=== PATIENT | female | born 1960 | race African-American/Black ===

== ENCOUNTER 2018-09-07 20:40 | Emergency (ER) | payer SELFPAY ==
[2018-09-07] MEDS ORDERED: Ibuprofen 200 MG TAB ONE (20:59)
== END 2018-09-07 21:15 | disposition home or self-care (01) ==
LOC: NAV ERS 20:40
DX: S43.401A Unspecified sprain of right shoulder joint, initial encounter (principal); W19.XXXA Unspecified fall, initial encounter
CPT/HCPCS: 99283

== ENCOUNTER 2020-04-26 14:19 | Emergency (ER) | payer OTHER, SELFPAY ==
[2020-04-26] MEDS ORDERED: Acetaminophen 500 MG TAB ONE (14:49)
[2020-04-26] MEDS ORDERED: Ondansetron ODT 4 MG TAB ONE (14:49)
[2020-05-01 14:25] LABS: SARS-CoV-2 MS2 Positive; SARS-CoV-2 N Gene Negative; SARS-CoV-2 S Gene Negative; SARS-CoV-2 orf1ab Negative
== END 2020-04-26 15:00 | disposition home or self-care (01) ==
LOC: NAV ERS 14:19
DX: R50.9 Fever, unspecified (principal); M79.10 Myalgia, unspecified site; R11.0 Nausea; R09.81 Nasal congestion; R05 Cough; Z20.828 Contact with and (suspected) exposure to other viral communicable diseases
CPT/HCPCS: 87635; 99283; Q0162; U0003

== ENCOUNTER 2020-11-08 16:28 | Emergency (ER) | payer BC, SELFPAY ==
[2020-11-08 17:02] LABS: #Eosinphils 0.2 thou/uL (0.0-0.7); #Lymphocytes 1.9 thou/uL (1.20-3.40); #Monocytes 0.4 thou/uL (0.11-0.59); #Neutrophils 1.4 thou/uL (1.40-6.50); %Basophils 0.3 % (0.0-1.0); %Lymphocytes 49.5 % (21.0-51.0); %Monocytes 9.6 % (0.0-10.0); %Neutrophils 36.5 % (42.0-75.0); Hemoglobin 11.7 g/dL (12.0-16.0); Mean Corpuscular HGB CONC 31.7 g/dL (32.0-36.0); Mean Corpuscular Hemoglobin 27.5 pg (27.0-31.0); Mean Corpuscular Volume 86.8 fL (78.0-98.0); Mean Platelet Volume 7.1 fL (7.4-10.4); Platelet Count 286 thou/uL (130-400); RBC Distribution Width 12.4 % (11.5-14.5); Red Blood Cell (RBC) Count 4.24 mill/uL (4.20-5.40); White Blood Cell (WBC) Count 3.7 thou/uL (4.8-10.8)
--- NOTE | 2020-11-08 17:04 | CT ---
CT Brain WO Con: 11/08/2020 4:51 PM CLINICAL HISTORY: Emergency room exam. IMAGING TECHNIQUE: Multiple CT images were obtained of the brain without IV contrast. COMPARISON: None. FINDINGS: BRAIN: Evidence of acute infarct: None. Evidence of chronic ischemic change:None. Evidence of intracranial hemorrhage: None. Evidence of brain volume loss:Mild generalized cerebral atrophy. Evidence of midline shift: Third ventricle and septum pellucidum are midline. Ventricles: Normal. No hydrocephalus. SKULL: Intact. VISUALIZED PARANASAL SINUSES: Clear. MASTOID AIR CELLS: Clear. EXTRACRANIAL SOFT TISSUES: Normal. IMPRESSION: No acute intracranial abnormality.
[2020-11-08 17:14] LABS: ALT (SGPT) 17 U/L (8-55); AST (SGOT) 17 U/L (5-34); Albumin 3.6 g/dL (3.5-5.0); Alkaline Phosphatase 60 U/L (40-110); Anion Gap 16 mmol/L (10-20); BUN (Urea Nitrogen) 9 mg/dL (9.8-20.1); Bilirubin, Total 0.4 mg/dL (0.2-1.2); Calc. Creatinine Clearance 0 mL/min (70-130); Calcium 8.8 mg/dL (7.8-10.44); Carbon Dioxide 22 mmol/L (22-29); Chloride 107 mmol/L (98-107); Globulin 4.1 g/dL (2.4-3.5); Glucose 102 mg/dL (70-105); Potassium 3.9 mmol/L (3.5-5.1); Protein, Total 7.7 g/dL (6.0-8.3); Sodium 141 mmol/L (136-145)
[2020-11-08 17:23] LABS: INR-International Normal Ratio 1.1; PTT 28.2 sec (22.9-36.1); Prothrombin Time 14.4 sec (12.0-14.7)
[2020-11-08] MEDS ORDERED: Aspirin Chewable 81 MG TAB ONE (17:28)
== END 2020-11-08 19:06 | disposition short-term general hospital (02) ==
LOC: NAV ERS 16:28
DX: R20.0 Anesthesia of skin (principal); Z86.73 Personal history of transient ischemic attack (TIA), and cerebral infarction without residual deficits
CPT/HCPCS: 36415; 70450; 80053; 84484; 85025; 85610; 85730; 93005; 94760

== ENCOUNTER 2023-09-20 12:02 | Emergency (ER) | payer BC ==
[2023-09-20] MEDS ORDERED: HYDROcodone/Acetaminophen 5/325 mg Tablet ONE (12:44)
== END 2023-09-20 13:18 | disposition home or self-care (01) ==
LOC: NAV ERS 12:02
DX: S60.211A Contusion of right wrist, initial encounter (principal); W18.30XA Fall on same level, unspecified, initial encounter

== ENCOUNTER 2023-12-17 22:10 | Emergency (ER) | payer BC ==
[2023-12-17] MEDS ORDERED: HYDROcodone/Acetaminophen 5/325 mg Tablet ONE (22:41)
== END 2023-12-17 22:50 | disposition home or self-care (01) ==
LOC: NAV ERS 22:10
DX: K02.9 Dental caries, unspecified (principal); K03.81 Cracked tooth; I10 Essential (primary) hypertension; Z79.899 Other long term (current) drug therapy; Z55.6 Problems related to health literacy
CPT/HCPCS: 99282